=== PATIENT | female | born 1970 | race Asian ===

== ENCOUNTER → 2016-09-17 | Outpatient (CLI) | payer BC ==
[~2016-09-17] MED LIST: ALBU8.5H3 INH; LORA10TA3 PO; PRED20TA PO
[2016-09-17 17:00] LABS: ADD SCAN DIFF NO
[2016-09-17 17:15] LABS: BASOPHILS % 0.3 % (0.0-2.0); EOSINOPHILS # 0.3 10^3/ul (0.0-0.5); EOSINOPHILS % 4.3 % (0.0-7.0); HEMATOCRIT 36.1 % (37.0-47.0); LYMPHOCYTES # 2.2 10^3/ul (0.8-2.9); LYMPHOCYTES % 37.9 % (15.0-51.0); MEAN CORPUSCULAR HGB CONC 33.2 g/dl (32.0-37.0); MEAN CORPUSCULAR VOLUME 90.3 fl (82.0-101.0); MEAN PLATELET VOLUME 9.7 fl (7.4-10.4); MONOCYTE # 0.5 10^3/ul (0.3-0.9); MONOCYTES % 8.5 % (0.0-11.0); NEUTROPHIL # 2.9 10^3/ul (1.6-7.5); PLATELET COUNT 263 10^3/UL (140-415); RED CELL DISTRIBUTION WIDTH 11.7 % (11.5-14.5); WHITE BLOOD COUNT 5.9 10^3/ul (4.8-10.8)
[2016-09-17 17:37] LABS: ALBUMIN 4.2 g/dl (3.3-4.9)
[2016-09-17 17:40] LABS: CREATININE 0.51 mg/dl (0.44-1.00); TOTAL PROTEIN 7.9 g/dl (6.1-8.1)
[2016-09-17 17:41] LABS: ALBUMIN/GLOBULIN RATIO 1.13; CALCIUM 9.2 mg/dl (8.4-10.2)
[2016-09-17 18:12] LABS: THYROID STIMULATING HORMONE 0.842 MIU/L (0.465-4.680)
== END | disposition home or self-care (01) ==
LOC: LAB 16:49
PROVIDERS: ATTEND Internal Medicine
DX: M79.605 Pain in left leg (principal); M79.604 Pain in right leg
CPT/HCPCS: 80053; 82550; 82553; 84443; 84484; 85025; 85651

== ENCOUNTER → 2017-12-07 | Outpatient (CLI) | END | disposition home or self-care (01) ==